=== PATIENT | female | born 1990 | race African-American/Black ===

== ENCOUNTER 2017-01-21 01:00 | Emergency (ER) | payer OTHER, SELFPAY ==
[2017-01-21] MEDS ORDERED: Ondansetron ODT 8 MG TAB ONE (01:34)
[2017-01-21 01:50] LABS: #Basophils 0.1 thou/uL (0.0-0.2); #Eosinphils 0.1 thou/uL (0.0-0.7); #Lymphocytes 1.4 thou/uL (1.20-3.40); #Monocytes 0.4 thou/uL (0.11-0.59); #Neutrophils 8.6 thou/uL (1.40-6.50); %Basophils 0.8 % (0.0-1.0); %Eosinophils 0.9 % (0.0-10.0); %Lymphocytes 12.9 % (21.0-51.0); %Monocytes 3.5 % (0.0-10.0); Hematocrit 43.5 % (36.0-47.0); Mean Platelet Volume 6.4 fL (7.4-10.4); White Blood Cell (WBC) Count 10.4 thou/uL (4.8-10.8)
[2017-01-21 01:52] LABS: Bilirubin Negative (Negative); Blood, Urine Large (Negative); Glucose, Urine (Dipstick) Negative (Negative); Ketone, Urine Negative (Negative); Nitrite Negative (Negative); Protein, Urine (Dipstick) Trace mg/dL (Neg-Trace)
[2017-01-21 01:54] LABS: Bacteria/HPF Rare-Few HPF (None Seen); Hyaline Casts/LPF 4-6 HYALINE CAST LPF (0-3 Hyaline); WBC/HPF 21-50 HPF (0-3)
[2017-01-21 02:04] LABS: ALT (SGPT) 12 U/L (8-55); AST (SGOT) 18 U/L (5-34); Alkaline Phosphatase 66 U/L (40-150); Anion Gap 10 mmol/L (10-20); BUN (Urea Nitrogen) 9 mg/dL (7.0-18.7); Bilirubin, Total 0.8 mg/dL (0.2-1.2); Calc. Creatinine Clearance 0 mL/min (70-130); Calcium 9.4 mg/dL (7.8-10.44); Carbon Dioxide 25 mmol/L (22-29); Chloride 105 mmol/L (98-107); Estimated GFR-MDRD Greater than 90; Globulin 3.7 g/dL (2.4-3.5); Lipase 12 U/L (8-78)
[2017-01-21] MEDS ORDERED: Ciprofloxacin 500 MG TAB ONE (03:48)
[2017-01-21] MEDS ORDERED: Ibuprofen 800 MG TAB ONE (03:48)
--- NOTE | 2017-01-21 07:58 | RAD ---
2 VIEWS ABDOMEN: Date: 01/21/17 HISTORY: Nausea, vomiting, and diarrhea. FINDINGS: Visualized lung bases are clear. No free intraperitoneal gas is seen beneath the hemidiaphragms. [place] gas pattern is overall nonspecific. There is an irregular calcification seen adjacent to the sacr um in the right hemipelvis measuring 9.0 mm x 5.0 mm. This cannot be further localized on this exam. This could represent a ureteral calculus. There is irregularity involving the lower sacrum and coccyx, which may be developmental in origin ve rsus remote fracture and injury. No other findings. IMPRESSION: 1. Irregular calcification adjacent to the sacrum and right hemipelvis which cannot be further loca lized on this exam. A distal right ureteral calculus could not be entirely excluded. 2. Nonspecific bowel gas pattern. 3. Irregularity of the distal sacrum and coccyx, which may be developmental in origin versus prior remote injury. POS: [facility]
== END 2017-01-21 03:51 | disposition home or self-care (01) ==
LOC: ERS 01:00
DX: N39.0 Urinary tract infection, site not specified (principal); I10 Essential (primary) hypertension; F31.9 Bipolar disorder, unspecified; F20.9 Schizophrenia, unspecified; F17.210 Nicotine dependence, cigarettes, uncomplicated
CPT/HCPCS: 36415; 74020; 80053; 81003; 81015; 83690; 84702; 85025; 96372